=== PATIENT | female | born 1965 | race Caucasian/White ===

== ENCOUNTER → 2018-11-24 | Outpatient (CLI) | payer OTHER ==
[2018-11-24 10:07] LABS: Blood Urea Nitrogen 12 mg/dL (7-17)
--- NOTE | 2018-11-24 10:20 | CT ---
EXAMINATION TYPE: CT ChestAbdPelvis w con DATE OF EXAM: 11/24/2018 COMPARISON: Same day MRI cervical spine and outside MRI cervical spine January 12, 2018 HISTORY: Lesion of cervical spinal cord, abnormal MRI. Additional history of uterine cancer and lap b and surgery with headache and vision changes since [address] DLP: 1287 mGycm. Automated Exposure Control for Dose Reduction was Utilized. CONTRAST: CT scan of the thorax, abdomen and pelvis is performed with oral and with IV Contrast, patient inject ed with 100 ml mL of Isovue 300. FINDINGS: LUNGS: Mild to moderate underlying emphysematous change with apical subpleural bleb formation is pres ent. No pleural effusion or pneumothorax is seen. No suspicious nodules or masses are identified. No suspicious consolidation. MEDIASTINUM: There are scattered prominent but subcentimeter lymph nodes including AP window, pericar inal, and subcarinal levels as well as anterior to ascending aorta axial image 23. Largest measure ly mph node is anterior right hilum measuring 1.6 x 1.0 cm axial image 27. No definitive greater than 1 cm on short axis lymph nodes are seen. No cardiomegaly or pericardial effusion is seen. OTHER: No additional significant abnormality is seen. LIVER/GB: Cholecystectomy clips are present.. PANCREAS: No significant abnormality is seen. SPLEEN: No significant abnormality is seen. ADRENALS: No significant abnormality is seen. KIDNEYS: No significant abnormality is seen. BOWEL: The oral contrast reaches level of the right colon. There is no suspicious small or large liz l dilatation. There is suspected 1 cm right pelvic phlebolith near sigmoid colon axial image 100. GENITAL ORGANS: Uterus is surgically absent. Ovaries are not seen and suspected surgically absent. LYMPH NODES: No greater than 1cm abdominal or pelvic lymph nodes are appreciated. OSSEOUS STRUCTURES: Area of concern at right C7-T1 on axial images on outside MRI does not reproduce on current MRI and is presumed artifactual. There is moderate multilevel spurring in the thoracic spi ne. There is mild narrowing of both hip joints. OTHER: There is mild vascular without sedation of aorta extending into branch vessels. IMPRESSION: No suspicious mass or adenopathy. Mild to moderate underlying emphysematous change witho ut acute pulmonary process.
--- NOTE | 2018-11-25 17:47 | MR ---
EXAMINATION TYPE: MR cervical spine wo/w con DATE OF EXAM: 11/24/2018 COMPARISON: 01/12/2018 HISTORY: 53-year-old female Lesion of cervical spinal cord Technique: Multiplanar, multisequence images of the cervical spine were obtained before and after adm inistration of 7 mL intravenous Gadavist gadolinium contrast. FINDINGS: No craniocervical junction abnormality, predental space widening, or prevertebral soft tissue swellin g. Alignment of the cervical spine is maintained with moderate multilevel degenerative disc disease tootie acterized by desiccated and mildly narrowed discs with disc osteophyte complexes. Scattered fatty Mod ic type II endplate changes present. No suspicious bone marrow placement. There is a degenerative trace grade 1 anterolisthesis at T2-T3. Scattered facet and uncovertebral joint degenerative changes present. At C2-C3, there is facet degenerative change without significant canal or foraminal stenosis. At T2-C4, mild posterior disc osteophyte complex and mild uncovertebral joint and facet degenerative change. No significant spinal canal or foraminal stenosis. Discussed by complex abuts the ventral cor d without cord flattening. At C4-C5, disc osteophyte complex with uncovertebral joint and facet degenerative change. No signific ant canal or foraminal stenosis. Disc osteophyte complex abuts the ventral cord without cord flatteni ng. At C5-C6, there is broad-based disc osteophyte complex with uncovertebral joint and facet degenerativ e change. Changes result in mild to moderate bilateral neuroforaminal stenosis. There is mild spinal canal stenosis with abutment of the ventral cord. At C6-C7, larger broad-based disc osteophyte complex with uncovertebral joint and facet degenerative change. Changes result in mild to moderate right and mild left neuroforaminal stenosis. However, long with a 5 mm nodular focus in the left lateral recess, there may be a more significant left-sided clara ral foraminal stenosis. There is mild spinal canal stenosis with abutment and slight flattening of th e ventral cord. At C7-T1, no spinal canal or neuroforaminal stenosis. Scattered CSF pulsation artifacts are present within the CSF on the axial T2 sequence. This is not as pronounced as on the outside 01/12/2018 study. No abnormal enhancement within the spinal canal. Opposite the C6-C7 level, there is a 5 mm isointense nodular focus in the left lateral recess, refer to sagittal image 4 and axial postcontrast image 15 that could represent a focal disc extrusion. Otherwise, no mass is seen within the spinal canal with particular attention to the right ventral asp ect of the canal at C7-T1. Correlating with the prior study, findings are most compatible with promin ent CSF pulsation artifact. Normal T2 cord signal. No prevertebral or paravertebral soft tissue abnormality. IMPRESSION: 1. Mild to moderate multilevel disc/endplate degenerative changes as well as scattered facet and unco vertebral joint arthropathy. 2. Changes result in mild overall narrowing of the spinal canal at C5-C6 and C6-C7 with abutment of t he ventral cord. No cord compression or canal compromise. No lesion of the spinal cord. 3. A nonenhancing 5 mm nodular focus in the left lateral recess at C6-C7. This is a very subtle findi ng and may represent a small focal disc extrusion narrowing the left neuroforamen. The lack of enhanc ement argues against a nerve sheath tumor or meningioma. 4. The previously questioned abnormality at C7-T1 along the right ventral aspect of the spinal canal corresponds to prominent CSF pulsation artifact. There is no mass here.
== END ==
LOC: RADMRIMAIN 07:30
PROVIDERS: ATTEND Internal Medicine Hematology & Oncology
DX: J43.9 Emphysema, unspecified (principal); M12.88 Other specific arthropathies, not elsewhere classified, other specified site; M48.02 Spinal stenosis, cervical region; S14.15 Other incomplete lesions of cervical spinal cord; Z88.8 Allergy status to other drugs, medicaments and biological substances
CPT/HCPCS: 82565; 84520; 71260; 74177; 36415; 72156; A9585; Q9967

== ENCOUNTER → 2019-03-15 | Outpatient (CLI) | payer OTHER ==
[2019-03-15 20:29] LABS: Total Protein,CSF 26 mg/dL (12-60)
[2019-03-15 22:33] LABS: Appearance,CSF Clear; CSF Tube Number 4; Nucleated Cells, CSF 2 u/L (0-5); Red Blood Cell,CSF 1 u/L (0-10)
[2019-03-17 14:10] LABS: IgG - CSF 1.4 mg/dL (0.0 - 3.4); IgG/Albumin Index (CSF) 0.57 (0.00 - 0.77); Immunoglobulin G 910 mg/dL (700 - 1600)
== END | disposition home or self-care (01) ==
LOC: LABWHC1 10:02
PROVIDERS: ATTEND Psychiatry & Neurology Pain Medicine
DX: H53.9 Unspecified visual disturbance (principal); R90.82 White matter disease, unspecified; R41.3 Other amnesia; R51 Headache
CPT/HCPCS: 36415; 82040; 82042; 82784; 83873; 83916; 84157; 87801; 89050

== ENCOUNTER → 2019-03-29 | Outpatient (CLI) | payer OTHER | LOC: CPPFTMAIN 08:18 | PROVIDERS: ATTEND Internal Medicine | DX: R09.89 Other specified symptoms and signs involving the circulatory and respiratory systems (principal) | CPT/HCPCS: 94060; 94726; 94729 ==

== ENCOUNTER 2020-06-01 08:01 | Day surgery (SDC) | payer OTHER ==
[2020-05-30 14:36] VITALS: BMI 25.1
[2020-06-01 08:16] VITALS: TEMP 97.6
[2020-06-01] MEDS ORDERED: LACTATED RINGERS 1,000 ML IV ONE (08:33)
[2020-06-01] MEDS ORDERED: LIDOCAINE 1% (10MG/ML) FOR IV START INTRADERMA ONE (08:34)
--- NOTE | 2020-06-01 10:11 | P.PCN ---
Date of Procedure: 06/01/20 Procedure(s) Performed: BRIEF HISTORY: Patient is a 54-year-old pleasant female scheduled for an elective colonoscopy as a part of evaluation of prior history of colon polyps. Last colonoscopy was 5 years ago. PROCEDURE PERFORMED: Colonoscopy with snare polypectomy. PREOPERATIVE DIAGNOSIS: History of colon polyps. IV sedation per Anesthesia. PROCEDURE: After informed consent was obtained, the patient, was brought into the endoscopy unit. IV sedation was administered by Anesthesia under continuous monitoring. Digital rectal examination was normal. Initially the Olympus CF-160 flexible video colonoscope was then inserted in the rectum, gradually advanced into the cecum without any difficulty. Careful examination was performed as the scope was gradually being withdrawn. Ileocecal valve and the appendiceal orifice were visualized and appeared normal. Prep was excellent. Mucosa of the cecum, ascending colon appeared normal. In the hepatic flexure there was a 1 cm broad- based polyp removed by snare polypectomy. Rest of the transverse colon, descending colon, sigmoid colon, and rectum appeared normal. Retroflexion was performed in the rectum and no lesions were seen. The patient tolerated the procedure well. IMPRESSION: 1 cm hepatic flexure polyp status post polypectomy Rest of the colon appeared normal RECOMMENDATIONS: Findings of this examination were discussed with the patient well as her family. She was advised to follow with the biopsy results. If the biopsy shows an adenoma she can have a repeat colonoscopy in 3-5 years.
[2020-06-01 10:30] VITALS: BP 119/70; PULSE 68; RESP 16
== END 2020-06-01 10:44 | disposition home or self-care (01) ==
LOC: ORWHC2ENDO 08:01
PROVIDERS: ATTEND Internal Medicine Gastroenterology
DX: Z12.11 Encounter for screening for malignant neoplasm of colon (principal); D12.3 Benign neoplasm of transverse colon; Z86.010 Personal history of colon polyps; E78.5 Hyperlipidemia, unspecified; J45.909 Unspecified asthma, uncomplicated; G43.909 Migraine, unspecified, not intractable, without status migrainosus; K90.0 Celiac disease; K86.81 Exocrine pancreatic insufficiency; Z88.8 Allergy status to other drugs, medicaments and biological substances; Z79.899 Other long term (current) drug therapy; Z98.890 Other specified postprocedural states
CPT/HCPCS: 45385; 88305

== ENCOUNTER → 2020-07-09 | Outpatient (CLI) | payer OTHER ==
[2020-07-09 10:34] LABS: Basophils # (A) 0.1 k/uL (0-0.2); Basophils % (A) 1 %; Eosinophils # (A) 0.1 k/uL (0-0.7); Eosinophils % (A) 1 %; HGB 15.1 gm/dL (11.4-16.0); Lymphocytes # (A) 3.3 k/uL (1.0-4.8); Lymphocytes % (A) 35 %; MCH 29.1 pg (25.0-35.0); MCHC 34.5 g/dL (31.0-37.0); MCV 84.3 fL (80.0-100.0); Mean Platelet Volume 6.4; Monocytes # (A) 0.6 k/uL (0-1.0); Monocytes % (A) 6 %; Neutrophils # (A) 5.3 k/uL (1.3-7.7); Neutrophils % (A) 56 %; Platelet Count 346 k/uL (150-450); RBC 5.21 m/uL (3.80-5.40); RDW 12.9 % (11.5-15.5); WBC 9.5 k/uL (3.8-10.6)
[2020-07-09 15:47] LABS: African American GFR (CKD) 95.5 (60.0-200.0); Albumin 4.8 g/dL (3.80-4.90); BUN/Creat Ratio 16.25 Ratio (12.00-20.00); Calcium 9.7 mg/dL (8.7-10.3); Globulin 2.4 g/dL (1.6-3.3); Non-African American GFR(CKD) 82.4 (60.0-200.0); Potassium 3.9 mmol/L (3.5-5.5); Total Bilirubin 0.4 mg/dL (0.3-1.2); Total Protein 7.2 g/dL (6.2-8.2)
[2020-07-09 15:55] LABS: T4, Free (Free Thyroxine) 1.2 ng/dL (0.80-1.80)
[2020-07-09 16:10] LABS: Folate, Serum 15.3 ng/mL
[2020-07-09 16:22] LABS: Hepatitis B Core IgM Non-Reactive (Non-Reactive); Hepatitis B Surface AB- Quant 5.9 mIU/mL; Hepatitis B Surface Antibody Non-Reactive (Non-Reactive); Hepatitis B Surface Antigen Non-Reactive (Non-Reactive)
[2020-07-09 17:41] LABS: Hemoglobin A1C 5.4 % (4.0-6.0)
[2020-07-09 19:11] LABS: HIV 2 AB Non-Reactive (Non-Reactive); HIV AB P24 Non-Reactive (Non-Reactive); HIV P24 AG Non-Reactive (Non-Reactive)
[2020-07-09 19:43] LABS: Total Protein,CSF 34 mg/dL (12-60)
[2020-07-09 20:04] LABS: Appearance,CSF Clear; CSF Tube Number 4
[2020-07-09 20:05] LABS: CSF Tube Volume 3; Nucleated Cells, CSF 0 u/L (0-5); Red Blood Cell,CSF 1 u/L (0-10)
[2020-07-11 05:12] LABS: Varicella IgM Antibody 0.32 INDEX (<=0.90)
== END | disposition home or self-care (01) ==
LOC: LABWHC1 09:55
PROVIDERS: ATTEND Psychiatry & Neurology Pain Medicine
DX: R90.82 White matter disease, unspecified (principal); Z51.81 Encounter for therapeutic drug level monitoring
CPT/HCPCS: 36415; 80053; 82040; 82042; 82306; 82607; 82746; 82784; 83036; 83873; 83916; 84157; 84207; 84425; 84439; 84443; 84481; 84591; 85025; 86704; 86705; 86706; 86787; 87340; 87390; 87801; 89050

== ENCOUNTER → 2024-07-29 | Outpatient (CLI) | payer OTHER | END | disposition home or self-care (01) | LOC: LABPAT 09:00 | PROVIDERS: ATTEND Orthopaedic Surgery | DX: Z01.818 Encounter for other preprocedural examination (principal); Z22.322 Carrier or suspected carrier of Methicillin resistant Staphylococcus aureus; M50.220 Other cervical disc displacement, mid-cervical region, unspecified level; M47.22 Other spondylosis with radiculopathy, cervical region | CPT/HCPCS: 87070 ==

== ENCOUNTER 2024-08-09 05:33 | Day surgery (SDC) | payer OTHER ==
[~2024-08-09 05:33] MED LIST: TRANEXAMIC 1,000 MG/100ML-NACL 1,000 MG in SALINE 1 100ML.BAG IVPB PRN
[2024-08-09] MEDS ORDERED: LIDOCAINE 1% (10MG/ML) FOR IV START INTRADERMA PRN (05:57)
[2024-08-09] MEDS: GABAPENTIN 300 MG CAP PO PRN (06:31)
[2024-08-09] MEDS: ACETAMINOPHEN TAB 500 MG TAB PO PRN (06:31)
[2024-08-09] MEDS: LACTATED RINGERS 1,000 ML IV SCH (06:34)
[2024-08-09] MEDS: ONDANSETRON 4 MG/2 ML VIAL IVP ONE (06:34)
[2024-08-09] MEDS: IV FLUID CONTINUATION 1,000 ML IV ONE (06:41)
[2024-08-09] MEDS: MIDAZOLAM 2 MG/2 ML VIAL IV ONE (06:56)
[2024-08-09] MEDS: DEXAMETHASONE SOD PHOSPHATE 4 MG/ML 1 ML VIAL IV ONE (07:00)
--- NOTE | 2024-08-09 07:27 | P.HPOR ---
History of Present Illness H&P Date: 07/29/24 .D:Date: 07/29/24 : 04:14pm .T:Title: *PRE-OP H1 [facility] [address] [place] [address] [place] [address]| PROVIDER: LUANNE MARKHAM DO CLINICAL SUMMARY: *59-year-old female presents with severe cervical pain and progressive neurological symptoms including left upper extremity weakness. Patient has a 3- year history of cervical issues with failed conservative management including physical therapy, NSAIDs, activity modification, cervical epidural injections, and home exercise programs. Imaging reveals severe cervical spondylosis at C5-7 with evidence of cord compression, myelomalacia, and bilateral foraminal stenosis. MRI and CT demonstrate significant central canal stenosis, loss of normal cervical lordosis, and multi-level degenerative changes. Given the progressive nature of symptoms and evidence of cord signal changes, patient is scheduled for C5-7 ACDF. Patient understands risks and benefits of surgical intervention and wishes to proceed with surgery. 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 Waldrop presents to the office today, 06/08/24, for a pre-operative appointment preceding her C5-7 ACDF. She states continued progressive pain and debility despite her attempts at conservative treatment. She states she has been dealing with her neck for the past 3 years and she has been to several doctors, surgeons and done multiple rounds of conservative treatments but has not gotten any better and she states she is ready for surgery. She states pain in her neck that radiates to her b/l shoulders and out to her hands on the right side more than left. 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 She states she drops things like her cups and it is harder to use utensils on that side. She states no recent trauma on the neck. There is remote history of trauma from accident. She states she does not feel off balance at this time. She states no other issues with her neck currently other than that stated. H8 Patient denies any f/c/sob/cp, perineal numbness or tingling, bowel, or bladder incontinence/retention. Patient is ambulatory P1 The patients past social, medical, family, surgical history, as well as review of systems, have been reviewed. Please refer to the History and Physical form that has been scanned into our electronic medical record system. R0 16 points review of systems completed and as stated in HPI, all other systems reviewed are negative. PAST TREATMENTS: PAST IMAGING: YES -XR, MRI, CT TRAUMA RELATED: NO - WORK RELATED: NO - PT IN LAST 6 MONTHS: YES -in the last 3 months she has done 12 sessions. The last few made her worse in the sense of pain in her neck PHYSICIAN DIRECTED HOME EXERCISE PROGRAM: YES -NO improvement ACTIVITY MODIFICAITON: YES -limited BLTPP, she states she has to do things but everything seems to aggravate at this time. MEDICATIONS: YES -REcently, noroco. Previously Tylenol, aleve with minimal relief. Flexeril/robaxin with mild relief. Prednisone helped while on it but then did not last. ALTERNATIVE INTERVENTIONS (CHIROPRACTIC, ACCUPUNCTURE, MASSAGE, RICE): YES -Massage, RICE BRACING: NO - INJECTIONS (PAPA, TF, RFA): YES -Previous injections in neck, she states gave her terrible LEGGETT and she will never do again. MEDICAL HISTORY: Past Medical History: REVIEWED STATED IN CHART Past Surgical History: REVIEWED STATED IN CHART Social History: REVIEWED STATED IN CHART SMOKING: Never smoker ETOH: None SUBSTANCES: None Family History: REVIEWED STATED IN CHART P1 Current Medications: Rx: albuterol sulfate HFA 90 mcg/actuation aerosol inhaler Ref: 0 Instructions: inhale 1 - 2 puffs (90 - 180 mcg) by inhalation route every 4 hours as needed Rx: Ditropan Ref: 0 Rx: FLUoxetine 40 mg capsule Ref: 0 Instructions: take 1 capsule (40 mg) by oral route 2 times per day in the morning and at noon Rx: HYDROcodone 5 mg-acetaminophen 325 mg tablet Ref: 0 Instructions: take 1 tablet by oral route every 4 hours as needed for pain Rx: KlonoPIN 0.5 mg tablet Ref: 0 Instructions: take 1 tablet (0.5 mg) by oral route 2 times per day Rx: ondansetron HCL 4 mg tablet Ref: 0 Instructions: take 1 tablet (4 mg) by oral route 4 times per day Rx: pravastatin 40 mg tablet Ref: 0 Instructions: take 1 tablet (40 mg) by oral route once daily Rx: pyridoxine (vitamin B6) 500 mg tablet Ref: 0 Rx: mexiletine 150 mg capsule Ref: 0 Instructions: take 1 capsules (300 mg) by oral route every daily with food P1 PHYSICAL EXAM: General: AOX3, NAD, Well hydrate, well nourished HEENT: No lumps or masses Extremities: No color changes, no pooling INTEGUMENT: Appearance: Normal color and turgor Surgical Incisions: none Hairy Patches: ABSENT Dorsal Skin Dimples: Normal [employer] spots: ABSENT PALPATION: TTP Midline: YES Paracervical: YES Parathoracic: NO Paralumbar: NO SIJ TESTING: NT POSTURAL BALANCE: Coronal: BALANCED Sagittal: BALANCED Shoulder height: LEVEL Pelvic Girdle: LEVEL ROM AND APPEARANCE: Neck: RESTRICTED Lumbar: UNRESTRICTED Shoulders: Symmetrical Hips: Symmetrical Knees: Symmetrical Hands: Symmetrical Feet: Symmetrical VASCULAR STATUS: PALPABLE PULSES B/L UE AND LE 2/4 RAD/ULNAR/DP/PT Edema: NONE NEUROLOGICAL EXAMINATION: Mental Status: Awake, alert, fully oriented with normal attention, concentration, and memory. Fluent appropriate speech. CRANIAL NERVES: I: Olfactory not assessed. II: Visual acuity normal, no visual field deficit noted with confrontation. III, IV: Normal pupillary reflexes & intact extraocular movements without nystagmus. V, : Intact symmetrical facial sensation. VII: Intact symmetrical facial motor movement: Hearing intact. IX, X: Intact gag, swallow, & normal voice. XI: Sternocleidomastoid, trapezius function intact. XII: Tongue midline with normal movements. TENSIONING: * L'HERMITTE'S SIG:NEG SPURLUNG'S SIGN:POS CUBITAL TUNNEL COMPRESSION:NEG TINELS AT WRIST:NEG STRAIGH LEG RAISE:NEG CONTRALATERAL STRAIGHT LEG RAISE: NEG MOTOR EXAM (0-5/5, NT) Muscle appearance: Symmetrical, without signs of atrophy or dystrophy UPPER EXTREMITY RIGHT LEFT Shoulder Abduction 5 5 Biceps 5 5 Triceps 5 4 Wrist Extension 4 4 Hand Intrinsics 4 4 Wireless Engineer 4 4 LOWER EXTREMITY RIGHT LEFT Hip Flexion 5 5 Knee Extension 5 5 Knee Flexion 5 5 Dorsiflexion 5 5 Plantarflexion 5 5 EHL 5 5 FHL 5 5 REFLEXES (0-4/2, NT): RIGHT LEFT Bicep 2 2 Brachioradialis 2 2 Triceps 2 2 Patellar 1 1 Achilles 1 2 PATHOLOGICAL REFLEXES: RIGHT LEFT CARRENO'S PRESENT PRESENT CLONUS ABSENT ABSENT BABINSKI ABSENT ABSENT RECTAL TONE: INTACT/NT SENSATION (0-4, NT): Sensation intact to LT and Pain * C5-T1 distribution BUE * L2-S2 distribution BLE *Exceptions below* DERMATOMAL DEFICIT/RADICULAR PATTERN: C4-7 GAIT AND FUNCTIONAL EVALUATION: AMBULATORY AID NONE ROMBERG'S TEST INTACT HAND AND FINGER DEXTERITY INTACT NONE DYSDIADOCHOKINESIA EXAM NEG B/L NONE TOE/HEEL WALK INTACT WITH GOOD BALANCE NONE SQUAT AND RISE W/O ASSISTANCE TO 60 DEG KNEE FLEXION NONE SINGLE LEG STANCE INTACT [place] NEG IMAGING: XRAY Date: 05/02/24 Location: Region: CERVICAL Views: AP/LAT/FLEX/EXT/OB IMAGES ARE REVIEWED WITH THE PATIENT IN OFFICE AND DEMONSTRATE THE FOLLOWING: FINDINGS: 1. Significant degenerative changes throughout the cervical spine 2. Loss of normal cervical lordosis 3. Multiple levels of disc space narrowing 4. Anterior and posterior osteophyte formation at multiple levels 5. Severe cervical spondylosis 6. Possible foraminal narrowing due to the degenerative changes 7. Marked [id number]-mc-[id number] changes at several disc spaces CT Date: 05/06/24 Location: [facility] Region: CERVICAL Contrast: N IMAGES ARE REVIEWED WITH THE PATIENT IN OFFICE AND DEMONSTRATE THE FOLLOWING: FINDINGS: 1. Significant cervical spondylosis, most pronounced at C5-C7 levels 2. Loss of normal cervical lordosis 3. Disc space narrowing at multiple levels, particularly severe at C5-6 and C6-7 4. Prominent anterior and posterior osteophyte formation 5. Endplate sclerosis at the affected levels 6. Facet joint hypertrophy visible on the posterior elements 7. Some degree of retrolisthesis noted 8. Bilateral uncovertebral joint hypertrophy 9. Bilateral facet arthropathy 10. Central canal appears relatively preserved but with some stenosis 11. Neural foraminal narrowing bilaterally 12. Posterior osteophyte formation 13. Normal vertebral body cortical margins without fracture IMPRESSION: 1. Moderate to severe cervical spondylosis, most pronounced at C5-7 2. Multi-level degenerative disc disease 3. Bilateral neural foraminal stenosis 4. Facet arthropathy 5. No acute fracture or subluxation identified 6. Findings likely contributing to cervical radiculopathy if clinically present MRI Date: 05/06/24 Location: [facility] Region: CERVICAL Contrast: N IMAGES ARE REVIEWED WITH THE PATIENT IN OFFICE AND DEMONSTRATE THE FOLLOWING: FINDINGS: Sagittal T2 Weighted Images: 1. Multi-level cervical spondylosis, most severe at C5-6 and C6-7 2. Loss of normal cervical lordosis 3. Significant disc height loss at C5-6 and C6-7 4. Posterior disc osteophyte complexes at these levels causing spinal canal stenosis 5. T2 signal changes in the cord at C5-6 level suggesting myelomalacia 6. Moderate to severe central canal stenosis at C5-6 and C6-7 7. CSF signal effacement anterior and posterior to the cord at these levels Axial T2 Weighted Images: 1. Severe bilateral foraminal stenosis at shown levels 2. Central canal stenosis with cord compression 3. Loss of normal CSF signal around the cord 4. Facet hypertrophy contributing to stenosis 5. Uncovertebral joint hypertrophy 6. Cord flattening/deformation at the stenotic levels IMPRESSION: 1. Severe cervical spondylosis at C5-6 and C6-7 with: - Central canal stenosis - Bilateral neural foraminal stenosis - Evidence of cord signal changes suggesting myelomalacia 2. Multi-level degenerative disc disease 3. Significant cord compression with CSF effacement 4. Findings consistent with cervical myelopathy and radiculopathy These findings represent significant pathology that likely correlates with clinical symptoms of myelopathy and/or radiculopathy and may warrant surgical consideration. IMPRESSION: It was my pleasure to have seen and examined Lashaun. I reviewed the patient's clinical syndrome, physical findings, and imaging studies during the appointment today. It is my impression that the patient has a diagnosis of. 1. M50.021 - Cervical disc disorder with myelopathy, mid-cervical region (C5-C6) - Evidence of cord signal changes and compression 2. M47.12 - Other spondylosis with myelopathy, cervical region - Multi-level cervical spondylosis with cord compression 3. M50.121 - Cervical disc disorder with radiculopathy, mid-cervical region - Bilateral foraminal stenosis at C5-6 and C6-7 4. M48.02 - Spinal stenosis, cervical region - Severe central canal stenosis at multiple levels 5. M47.812 - Spondylosis without myelopathy or radiculopathy, cervical region - General degenerative changes throughout cervical spine 6. G95.20 - Cord compression, unspecified - Evidence of spinal cord compression with myelomalacia PLAN: DISCUSSION NOTE: I had a detailed discussion with patient regarding cervical pathology. Reviewed MRI and CT findings showing severe stenosis at C5-7 with evidence of cord compression and signal changes. Explained that these findings correlate with her symptoms of progressive neck pain, left upper extremity weakness, and radicular symptoms. We discussed natural history of cervical spondylotic myelopathy and risks of progression without intervention. Reviewed all treatment options including: Conservative Options (Already Attempted): * Physical therapy NSAIDs/Pain management Activity modification Cervical epidural injections Home exercise program Cervical traction Given failure of conservative measures and evidence of progressive neurological symptoms, surgical intervention was discussed. Recommended anterior cervical discectomy and fusion (ACDF) at C5-7. Reviewed surgical procedure, recovery process, and expected outcomes. Discussed surgical risks including but not limited to: * Infection Bleeding Dysphagia Neural injury Hardware complications Adjacent segment disease Need for future surgery General surgical/anesthetic risks Patient understands risks/benefits and wishes to proceed with surgical intervention. AUTHORIZATION REQUEST: Patient Demographics: Age: 58 Primary Symptoms: Progressive cervical myelopathy, radiculopathy PROCEDURE REQUESTED: Anterior Cervical Discectomy and Fusion (ACDF) C5-7 PRIMARY ICD-10 CODES: * M50.021 - Cervical disc disorder with myelopathy, mid-cervical region M47.12 - Other spondylosis with myelopathy, cervical region M50.121 - Cervical disc disorder with radiculopathy, mid-cervical region M48.02 - Spinal stenosis, cervical region CPT CODES: * 91975 - Anterior cervical discectomy and fusion, single level 57128 - Each additional level 47708 - Anterior instrumentation, 2-3 segments MEDICAL NECESSITY: * Documented Progressive Neurological Deficit: * Left upper extremity weakness Cervical radiculopathy MRI evidence of cord signal changes Progressive myelopathic symptoms * Failed Conservative Treatment: * Physical therapy without improvement NSAIDs/medication management Activity modification Epidural injections Home exercise program * Imaging Evidence: MRI/CT demonstrates: * Severe central canal stenosis C5-7 Cord compression with signal changes Bilateral foraminal stenosis Advanced spondylotic changes * Clinical Progression: * Worsening neurological symptoms Failing conservative management Progressive functional decline Increasing pain levels Impact on activities of daily living SURGICAL RATIONALE: Multi-level ACDF is indicated due to: * Failed adequate conservative management Progressive neurological compromise Documented pathology on imaging Cord signal changes indicating myelomalacia Risk of further neurological deterioration without intervention REQUESTED AUTHORIZATION: * Pre-operative clearance Hospital admission (1-2 days) Post-operative rehabilitation DME as needed Post-operative medication management Without surgical intervention, patient is at significant risk for continued neurological deterioration and permanent cord injury. Given the progressive nature of symptoms and failure of conservative measures, surgical intervention represents the most appropriate treatment option. FOLLOW UP: *POST-OP PLAN AT NEXT VISIT: * RECHECK PATIENT EDUCATION: Medications Reviewed: YES In our visit today Ms. Waldrop and I have had a chance to go over my understanding of the patient's current condition, the natural course history without intervention and various interventional options. Questions were invited and answered, and the patient wishes to proceed as outlined above. I will be sure to keep you updated after Ms. Waldrop returns here for further follow-up. Thank you again for your referral. Please do not hesitate to contact me if you have any further questions. Signed and authenticated by: Luanne Cokeron [facility] [address] [address] . This message is confidential, intended only for the named recipient(s) and may contain information that is privileged or exempt from disclosure under applicable law. If you are not the intended recipient(s), you are notified that the dissemination, distribution or copying of this information is prohibited. If you received this message in error, please notify the sender then delete this message. Past Medical History Past Medical History: Asthma, Fibromyalgia, Hyperlipidemia, Neurologic Disorder, Rheumatoid Arthritis (RA) Additional Past Medical History / Comment(s): HX MIGRAINES, CELIAC DISEASE, IBS, COLITIS-NAUSEA ALL THE TIME AND LOOSE STOOLS-GLUTEN FREE DIET, SINUS PROBLEMS @ TIMES. History of Any Multi-Drug Resistant Organisms: None Reported Past Surgical History: Appendectomy, Bladder Surgery, Cholecystectomy, Hysterectomy, Orthopedic Surgery Additional Past Surgical History / Comment(s): NUMEROUS COLONOSCOPIES, NUMEROUS ORAL SURGERIES, BLADDER SUSPENSION, RT KNEE SCOPE. Past Anesthesia/Blood Transfusion Reactions: Postoperative Nausea & Vomiting (PONV) Smoking Status: Former smoker, Vaper - Past Family History Father Family Medical History: Cancer Additional Family Medical History / Comment(s): Leukemia. Mother Family Medical History: Cancer Additional Family Medical History / Comment(s): kidney ca Medications and Allergies Home Medications Medication Instructions Recorded Confirmed Type Albuterol Sulfate [Proventil Hfa] 1 - 2 puff INHALATION Q4H PRN 11/23/14 08/04/24 History FLUoxetine HCL [PROzac] 20 mg PO DAILY 11/23/14 08/04/24 History diazePAM [Valium] 5 mg PO BID PRN 11/23/14 08/04/24 History Ondansetron [Zofran] 8 mg PO Q8HR PRN 05/23/20 08/04/24 History Pravastatin Sodium [Pravachol] 20 mg PO DAILY 05/23/20 08/04/24 History oxyBUTYnin chloride [Ditropan XL] 15 mg PO DAILY 05/23/20 08/04/24 History Atogepant [Qulipta] 10 mg PO DAILY 08/04/24 08/04/24 History Fluticasone/Umeclidin/Vilanter 1 puff INHALATION DAILY 08/04/24 08/09/24 History [Trelegy Ellipta 200-62.5-25] Allergies Allergy/AdvReac Type Severity Reaction Status Date / Time bupropion HCl Allergy Anaphylaxis Verified 08/09/24 06:30 [From Wellbutrin] topiramate [From Topamax] Allergy SLURRED Verified 08/09/24 06:30 SPEECH, " WASTED FEELING" PER PT gabapentin AdvReac SLURRED Verified 08/09/24 06:30 SPEECH, " WASTED FEELING" PER PT Physical Examination Osteopathic Statement: *. No significant issues noted on an osteopathic structural exam other than those noted in the History and Physical/Consult.
[2024-08-09] MEDS: THROMBIN (BOVINE) 5,000 UNIT VIAL TOPICAL ONE (07:30)
[2024-08-09] MEDS: LACTATED RINGERS 1,000 ML IV ONE (09:13)
--- NOTE | 2024-08-09 09:46 | P.OP ---
Date of Procedure: 08/09/24 Preoperative Diagnosis: 1. 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 C6-7 SPONDYLOSIS WITH STENOSIS, MYELOMALACIA 3. CERVICAL MYELOPATHY 4. UE PARESTHESIA 5. UE RADICULOPATHY 6. NECK PAIN Postoperative Diagnosis: 1. 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 C6-7 SPONDYLOSIS WITH STENOSIS, MYELOMALACIA 3. CERVICAL MYELOPATHY 4. UE PARESTHESIA 5. UE RADICULOPATHY 6. NECK PAIN Procedure(s) Performed: 1. C5-6 ANTERIOR CERVICAL ARTHRODESIS 2. C6-7 ANTERIOR CERVICAL ARTHRODESIS 3. C5-7 ANTERIOR INSTRUMENTATION 4. C5-6, C6-7 INSERTION OF BIOMECHANICAL DEVICES, CAGES x2 USE OF IONM USE OF IO MICROSCOPE Implants: -GLOBUS COALITION 8 AND 9MM XL -12MM ANCHOR/PLATE -AUTOGRAFT, MAGNATOS Anesthesia: GETA Surgeon: Rell Epperson Orthopaedic Surgeon #1: Jai Zarate (was present and assisted with all aspects of the case from position to dressing placement) Estimated Blood Loss (ml): 25 IV fluids (ml): 1,200 Urine output (ml): 425 Pathology: none sent Condition: stable Disposition: PACU Indications for Procedure: 59-year-old female presents with severe cervical pain and progressive neurological symptoms including left upper extremity weakness. Patient has a 3- year history of cervical issues with failed conservative management including physical therapy, NSAIDs, activity modification, cervical epidural injections, and home exercise programs. Imaging reveals severe cervical spondylosis at C5-7 with evidence of cord compression, myelomalacia, and bilateral foraminal stenosis. MRI and CT demonstrate significant central canal stenosis, loss of normal cervical lordosis, and multi-level degenerative changes. Given the progressive nature of symptoms and evidence of cord signal changes, patient is scheduled for C5-7 ACDF. Patient understands risks and benefits of surgical intervention and wishes to proceed with surgery. Description of Procedure: C5-7 ACDF The patient was seen and examined in the preoperative area. All preoperative protocols were followed. Informed consent was obtained, risks and benefits of the procedure were discussed at length. Risks including bleeding infection damage to the surrounding tissue and risk of reoperation were discussed with the patient. Risk of anesthesia up to and including was discussed with the patient. These are outlined in the risk review. They were willing to accept these risks and all the risks of surgery. The patient was given a weight-based dose of antibiotics in the form of 2 g Ancef. The patient was seen and evaluated by the anesthesia team who deemed them fit for surgery. The site was marked, the patient was willing to proceed with the procedure. The patient was transferred to the operative suite by the Department of anesthesia. They were then drifted off to sleep by the department anesthesia and GETA was performed. The patient tolerated this well. Jimenez catheter was placed by nursing staff, a-traumatically. Once confirmation of lines and ventilation the patient was transferred to a Supine Truman table very carefully. All bony prominences including wrists, elbows, axilla, chest, hips, and thighs, and feet were padded very well. Special attention was paid to the genitalia, and these were padded accordingly. SCDs were placed on bilateral lower extremities and were connected. Arms were well padded and placed at their side thumbs up. Once in position, again we confirmed good ventilation capabilities and that lines were running appropriately. The patients Cervical spine was then exposed. 1010s were placed outlining the incision site. Standard alcohol was used to clean the incision site and allowed to dry. C-arm was used to bio-ade the patient and confirm level for incision which was marked with a skin marker. Operative briefing was performed with all teams and everyone in agreement to proceed. The patient was then prepped and draped in a normal sterile fashion. Timeout was then performed, and all parties agreed with the procedure to be performed. Transverse skin incision was then made on the right side of the patient's neck 3 cm and dissection taken down to the platysma which was split transversely. Sub platysma flap was made, and interval identified between SCM and medial structures. Omohyoid was visualized and protected. Blunt dissection taken down to the anterior cervical fascia which was identified. Blunt probe was then placed and lateral image taken which confirmed levels for operation. These levels were then marked with a bovi. Subperiosteal dissection of the longissimus muscles were then done over these levels identifying uncovertebral joints bilaterally. Retractor was then placed deep to these muscles and held in place with a bed arm. There were large anterior osteophytes which needed to be removed along with disc osteophyte complex anteriorly. These were also removed at C5-6 and C6-7 to allow for access to these levels and mobilize them. Starting at C6-7, [place] pins were placed into C6 and C7 and gentle distraction taken out over the levels. Jayme rongeur used to remove disc material. Operating microscope brought in for visualization. Complete discectomy performed at this level with curette, rongure and pituitary. High speed diann used to remove osteophytes anteriorly and posteriorly until PLL was identified. 6-0 up curette then used to identify the canal and resect the PLL. 2-0 and 3-0 Kerrison used then to remove PLL and disc herniation and performed b/l foraminotomies. Once good decompression was accomplished, meticulous hemostasis was performed. Sizers were then placed under lateral fluoroscopy until the desired height and lordosis. Cage was then selected, packed with autograft and allograft and placed under lateral imaging. Once in good position it was tested and stable. Plate and anchor construct was then placed and anchors deployed under lateral imaging. These were in good position and were then locked and final tightened. Motors run before and after cage placement were stable. The wound was irrigated, and autograft placed lateral to the cage anteriorly for fusion. [place] pin was then removed from C7 and placed into C5. Gentle distraction taken out over C5-6 now. Complete discectomy done at C5-6 as described including decompression, b/l foraminotomies and PLL resection. Burring of endplates was minimal, osteophytes removed as described. Spacers were then sized and placed under lateral imaging. Cage selected, packed with graft and placed under lateral images. Once in position, meticulous hemostasis performed, and motors remained stable before and after cage placement. Plate and anchor construct was then placed and anchors deployed under lateral imaging. These were in good position and were then locked and final tightened. AP image confirmed good placement of cages. Wound was irrigated. All locking mechanisms were set, and all screws had good purchase. Final AP and lateral images taken confirmed good placement of hardware and good reduction and samaritan of height. The wound was then irrigated copiously with NSS. Surgicel placed deep in the wound. A deep drain placed out a separate incision and sewed into place. Layered closure then performed with 3-0 Vicryl in the platysma and subQ tissue. 4-0 Strata fix in the subcuticular tissue. The wound was then cleaned, and dried and skin glue placed. Once glue dried on Opifoam was placed. The patient was then transferred back to their hospital bed a-traumatically. The drain continued to hold suction. They were placed in a soft collar. They were then awakened by the department of anesthesia having tolerated the procedure well without complications.
--- NOTE | 2024-08-09 09:58 | XR ---
Fluoroscopy INDICATION: Pain FINDINGS: Fluoroscopy time: 24.1 seconds. Total dose area product (DAP) in uGy*m?, mGy*cm? (or similar): 0.283 Images obtained: 6. A metallic device is directed to the C5-6 disc level. IMPRESSION: 1. Documentation of fluoroscopy. [facility] Workstation: 3, 08/09/2024 9:56 AM
[2024-08-09] MEDS ORDERED: SENNOSIDES-DOCUSATE SODIUM 1 EACH TAB PO PRN (10:08)
[2024-08-09] MEDS ORDERED: MAGNESIUM HYDROXIDE 2,400 MG/30 ML CUP PO PRN (10:08)
[2024-08-09] MEDS ORDERED: HYDROcodone/APAP 5-325MG 1 EACH TAB PO PRN (10:08)
[2024-08-09] MEDS ORDERED: HYDROmorphone 0.5 MG/0.5 ML SYRINGE IVP PRN (10:08)
[2024-08-09] MEDS: HYDROmorphone 0.5 MG/0.5 ML SYRINGE IVP PRN (10:20)
--- NOTE | 2024-08-09 11:07 | FL ---
Fluoroscopy INDICATION: Pain FINDINGS: Fluoroscopy time: 19 seconds. Total dose area product (DAP) in uGy*m?, mGy*cm? (or similar): 0.2838 Images obtained: 0. IMPRESSION: 1. Documentation of fluoroscopy. [facility], , 08/09/2024 11:04 AM
[2024-08-09] MEDS: hydrALAZINE HCL 20 MG/ML 1 ML VIAL IVP STA (11:44)
[2024-08-09] MEDS: ONDANSETRON 4 MG/2 ML VIAL IVP PRN ×2 (13:27→16:47)
--- NOTE | 2024-08-09 16:26 | CT ---
EXAMINATION TYPE: CT cervical spine wo con DATE OF EXAM: 08/09/2024 4:08 PM COMPARISON: None. CLINICAL INDICATION: Female, 59 years old with history of s/p c5-C7 acdf; s/p c5-C7 acdf this morning . Post op vomiting TECHNIQUE: Axial CT images from the skull base to the inferior aspect of T2 we obtained without intra venous contrast. Coronal and sagittal reformatted images were also reviewed. Contrast used: mL of , (if blank None) Oral contrast used: (if blank None) CT DLP: 262.5 mGycm, Automated exposure control for dose reduction was used. FINDINGS: Postsurgical changes with hardware at the anterior aspect of C5-C6 and C6-C7. Drainage catheter termi nates anterior to these surgical bed. Subcutaneous gas compatible with recent surgery. No evidence fo r acute complication No evidence for fracture. Mild multilevel degeneration changes of the spine with osteophyte formation and facet joint arthropathy. Paraseptal emphysematous changes of the lungs. IMPRESSION: Post surgical changes without evidence for immediate postop application. Drainage catheter appears in appropriate position. [facility], , 08/09/2024 4:24 PM
[2024-08-09] MEDS: droPERidol 5 MG/2 ML VIAL IVP ONE (16:37)
[2024-08-09] MEDS: ACETAMINOPHEN TAB 325 MG TAB PO SCH (16:37)
[2024-08-09] MEDS: CYCLOBENZAPRINE 5 MG TAB PO PRN (16:40)
[2024-08-09] MEDS: SCOPOLAMINE 1 MG/72 HR PATCH TRANSDERM STA (18:21)
[2024-08-10] MEDS: HYDROcodone/APAP 10-325MG 1 EACH TAB PO PRN (00:18)
[2024-08-10] MEDS: HYDROmorphone 1 MG/ML 1 ML SYRINGE IVP PRN (04:04)
[2024-08-10 09:06] LABS: Basophils # (A) 0.04 X 10*3/uL (0.00-0.10); Basophils % (A) 0.2 %; Eosinophils # (A) 0.02 X 10*3/uL (0.04-0.35); Eosinophils % (A) 0.1 %; HCT 38.2 % (37.2-46.3); HGB 13.1 g/dL (12.0-15.0); Lymphocytes # (A) 2.89 X 10*3/uL (0.90-5.00); Lymphocytes % (A) 17.3 %; MCH 28.4 pg (27.0-32.0); MCHC 34.3 g/dL (32.0-37.0); MCV 82.9 FL (80.0-97.0); Mean Platelet Volume 8.8 FL (9.5-12.2); Monocytes # (A) 1.13 X 10*3/uL (0.20-1.00); Monocytes % (A) 6.8 %; NRBC Per 100 WBC 0 X 10*3/uL (0.00-0.01); Neutrophils # (A) 12.48 X 10*3/uL (1.80-7.70); Neutrophils % (A) 74.8 %; Platelet Count 369 X 10*3/uL (140-440); RBC 4.61 X 10*6/uL (4.10-5.20); RDW 13.1 % (11.5-14.5); WBC 16.69 X 10*3/uL (4.50-10.00)
[2024-08-10] MEDS: CAFFEINE-SODIUM BENZOATE 500 MG in SODIUM CHLORIDE 0.9% 1,000 ML IVPB ONE (09:06)
[2024-08-10] MEDS: SENNOSIDES-DOCUSATE SODIUM 1 EACH TAB PO SCH (09:12)
[2024-08-10 09:35] LABS: BUN/Creat Ratio 10.29 Ratio (12.00-20.00); Blood Urea Nitrogen 7.2 mg/dL (9.0-27.0); Carbon Dioxide 22.6 mmol/L (21.6-31.8); Chloride 92 mmol/L (96-109); Glucose 98 mg/dL (70-110); Potassium 3.9 mmol/L (3.5-5.5); Sodium 126 mmol/L (135-145)
[2024-08-10 09:36] LABS: Calcium 8.9 mg/dL (8.7-10.3)
[2024-08-10] MEDS ORDERED: ALBUTEROL NEBULIZED 2.5 MG/3 ML INHALATION PRN (09:44)
--- NOTE | 2024-08-10 12:05 | P.PN ---
Subjective Progress Note Date: 08/10/24 Principal diagnosis: 1. 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 C6-7 SPONDYLOSIS WITH STENOSIS, MYELOMALACIA 3. CERVICAL MYELOPATHY 4. UE PARESTHESIA 5. UE RADICULOPATHY 6. NECK PAIN Patient seen and examined this morning. Patient is resting comfortably in bed. She does have complaint of a headache and nausea this morning. Patient has been provided medications and states it is subsiding. Patient does report that she normally does have coffee in the morning, IV caffeine has been ordered. Patient denies any blurred vision or dizziness. Surgical incision to the anterior cervical spine, dressing is clean dry and intact. Hard cervical collar is in place. Encourage patient to be up in chair for all meals. Continue to encourage incentive spirometer 10 times an hour while awake. No acute concerns. Objective - Vital Signs Vital signs: Vital Signs Temp 98.0 F 08/10/24 00:24 Pulse 70 08/10/24 00:24 Resp 17 08/10/24 00:24 BP 166/90 08/10/24 00:24 Pulse Ox 97 08/10/24 00:24 FiO2 Intake & Output 08/09/24 08/10/24 08/10/24 18:59 06:59 18:59 Intake Total 1600 Output Total 1850 1310 Balance -250 -1310 Weight 58.7 kg Intake: IV 1600 Output: Drainage 10 Right Anterior Neck 10 Urine 1825 1300 Estimated Blood Loss 25 Other: # Bowel Movements 1 - Exam Physical Examination General: The patient is awake and alert, in no acute distress Skin: Skin is warm and dry with no obvious rashes or lesions. Surgical incision to the anterior cervical spine, dressing is clean dry and intact. Eye: Pupils are equal, round and reactive to light, extra-ocular movements are intact; there is normal conjunctiva bilaterally. Neck: The neck is supple, there is no tenderness and ROM intact. Cardiovascular: There is a regular rate and rhythm. No murmur, rub or gallop is appreciated. Respiratory: Respirations are non-labored, breath sounds are equal. Gastrointestinal: Soft, non-distended, non-tender abdomen. Back: There is no tenderness to palpation in the midline, paralumbar, parathoracic or buttocks region. There is no obvious deformity . Musculoskeletal: ROM limited secondary to pain and stiffness from surgical p rocedure. Right: Shoulder abduction 4/5, elbow flexors 4/5, wrist dorsiflexors 5/5. finger abductor 5/5, artificial candy maker 5/5, hip flexor 5/5, knee flexor 5/5, ankle dorsiflexor 5/5, ankle plantarflexion 5/5 and extensor hallucis 5/5. Left: Shoulder abduction 4/5, elbow flexors 4/5, wrist dorsiflexors 5/5. finger abductor 5/5, artificial candy maker 5/5, hip flexor 4-/5, knee flexor 4/5, ankle dorsiflexor 5/5, ankle plantarflexion 5/5 and extensor hallucis 5/5. Neurological: CN 2-12 intact. There are no obvious motor or sensory deficits. Movement and coordination equal and intact. Sensory exam to light touch intact C5-T1 and intact from L2-S1. Reflexes 2/4 in bilateral upper and lower extremities. Negative Hoffmans, babinski, and clonus signs. Psychiatric: Cooperative, appropriate mood & affect, normal judgment. - Labs CBC & Chem 7: 08/10/24 03:52 08/10/24 03:52 Assessment and Plan Assessment: Postop day 1: C5-C7 ACDF Plan: -Appreciate compliance consultant and team management. -Activity: Ambulate QID, OOB all meals, up and about, limit lifting bending twisting to less than 5 lbs. Use walker or cane if needed for stability. -Daily PT/OT, increase ambulation strength and balance. -Hard cervical collar is to be on at all times, may remove for showers. -Pain control: Adequate at this time -Meds: reviewed -GI ppx: senna, Miralax -DC graves when up and about, bedside commode if needed -DVT PPX: Heparin may be started tonight. -Hygiene: Maintain incision clean and dry. May change dressing as needed, please document in notes if performed. -Encourage IS 10x/hr -Dispo: Clinically pending *I reviewed and discussed this case with my attending Dr. Epperson, whom has reviewed this chart and films and is in agreement with assessment and plan of care as outlined above. I have personally seen and examined the patient, performed the documentation and the assessment and plan as written. Number of minutes spent on the visit: 20m.
[2024-08-10] MEDS: diazePAM 5 MG TAB PO PRN (12:44)
[2024-08-10] MEDS: PRAVASTATIN SODIUM 20 MG TAB PO SCH (12:44)
[2024-08-10] MEDS: OXYBUTYNIN 15 MG TAB.ER.24 PO SCH (12:44)
[2024-08-10] MEDS: FLUoxetine HCL 20 MG CAP PO SCH (12:45)
[2024-08-10] MEDS: SYMBICORT 160-4.5 MCG INHALER INHALATION SCH (12:59)
[2024-08-10] MEDS: IPRATROPIUM 0.5 MG/2.5 ML NEBU INHALATION SCH (12:59)
[2024-08-10] MEDS: methocarbamoL 750 MG TAB PO SCH (15:07)
--- NOTE | 2024-08-10 15:43 | P.CONS ---
History of Present Illness - Reason for Consult Consult date: 08/10/24 - History of Present Illness History of present illness: 59-year-old female with past medical history significant for COPD and hyperlipidemia who was following orthopedic spine for chronic back pain with progressive neurological symptoms including left upper extremity weakness. Patient had 3-year history of neck pain with failed conservative management including physical therapy NSAIDs, activity modifications, PAPA and home exercise programs. Imaging revealed severe cervical spondylosis at C5-7 with evidence of cord compression, myelomalacia and bilateral foraminal stenosis. MRI and CT demonstrated significant central canal stenosis loss of normal cervical lordosis and multilevel degenerative changes. Patient underwent cervical fusion. Internal medicine consulted for medical management. Patient denied any fever, chills, sore throat, productive cough, chest pain, palpitation, nausea vomiting diarrhea constipation abdominal pain dysuria urgency frequency weakness or numbness to extremities. Patient reported neck pain, muscle spasm. Upper extremity weakness and numbness improving. Patient complained of headache and nausea earlier today. Assessment and plan: Cervical stenosis with radiculopathy: Status post cervical fusion by orthopedic spine on 08/09/2024. Management per primary DVT prophylaxis, pain management, perioperative antibiotics per primary Bowel/bladder protocol PT/OT COPD: Stable Continue home inhalers Hyperlipidemia: Pravastatin Monitor vital signs and labs Labs and medication were reviewed. Continue same treatment. Further recommendations as per clinical course of the patient PHYSICAL EXAMINATION: GENERAL: The patient is A&O x3, NAD. Cervical collar in place. HEENT: EOMI, Sclerae anicteric, Moist Mucous membranes Neck: Supple, Non tender, No JVD PULMONARY: Equal breath souds B/L, No wheezing, No crackles. CARDIOVASCULAR: S1, S2 present. No murmurs, rubs, or gallops. ABDOMEN: Soft, nontender, nondistended, normoactive bowel sounds. No guarding or rebound tenderness. MUSCULOSKELETAL: No edema, No cyanosis. No clubbing. Normal ROM. Intact peripheral pulses. Cervical collar in place, drain. NEUROLOGICAL: CN 2-12 grossly intact. No FND REVIEW OF SYSTEMS: CONSTITUTIONAL: No fever, no malaise, no fatigue. HEENT: No recent visual problems or hearing problems. Denied any sore throat. CARDIOVASCULAR: No chest pain, orthopnea, PND, no palpitations, no syncope. PULMONARY: No shortness of breath, no cough, no hemoptysis. GASTROINTESTINAL: No diarrhea, no nausea, no vomiting, no abdominal pain. NEUROLOGICAL: No headaches, no weakness, no numbness. HEMATOLOGICAL: Denies any bleeding or petechiae. GENITOURINARY: Denies any burning micturition, frequency, or urgency. MUSCULOSKELETAL/RHEUMATOLOGICAL: Complains of neck pain, muscle spasm. ENDOCRINE: Denies any polyuria or polydipsia. The rest of the 14-point review of systems is negative. Dictation was produced using Vostu dictation software. please excuse any grammatical, word or spelling errors. Past Medical History Past Medical History: Asthma, Fibromyalgia, Hyperlipidemia, Neurologic Disorder, Rheumatoid Arthritis (RA) Additional Past Medical History / Comment(s): HX MIGRAINES, CELIAC DISEASE, IBS, COLITIS-NAUSEA ALL THE TIME AND LOOSE STOOLS-GLUTEN FREE DIET, SINUS PROBLEMS @ TIMES. History of Any Multi-Drug Resistant Organisms: None Reported Past Surgical History: Appendectomy, Bladder Surgery, Cholecystectomy, Hysterectomy, Orthopedic Surgery Additional Past Surgical History / Comment(s): NUMEROUS COLONOSCOPIES, NUMEROUS ORAL SURGERIES, BLADDER SUSPENSION, RT KNEE SCOPE. Past Anesthesia/Blood Transfusion Reactions: Postoperative Nausea & Vomiting (PONV) Past Psychological History: Anxiety, Panic Disorder Smoking Status: Former smoker, Vaper Past Alcohol Use History: None Reported Additional Past Alcohol Use History / Comment(s): SMOKER SINCE 1988-SMOKED ABOUT 1/2 PPD- quit smoking cigarettes May 2024, currently vaping nicotine Past Drug Use History: Marijuana Additional Drug Use History / Comment(s): HAS MEDICAL MARIJUANA- for pain. Aware no use 24 hrs prior to procedure. - Past Family History Father Family Medical History: Cancer Additional Family Medical History / Comment(s): Leukemia. Mother Family Medical History: Cancer Additional Family Medical History / Comment(s): kidney ca Medications and Allergies Home Medications Medication Instructions Recorded Confirmed Type Albuterol Sulfate [Proventil Hfa] 1 - 2 puff INHALATION Q4H PRN 11/23/14 08/04/24 History FLUoxetine HCL [PROzac] 20 mg PO DAILY 11/23/14 08/04/24 History diazePAM [Valium] 5 mg PO BID PRN 11/23/14 08/04/24 History Ondansetron [Zofran] 8 mg PO Q8HR PRN 05/23/20 08/04/24 History Pravastatin Sodium [Pravachol] 20 mg PO DAILY 05/23/20 08/04/24 History oxyBUTYnin chloride [Ditropan XL] 15 mg PO DAILY 05/23/20 08/04/24 History Atogepant [Qulipta] 10 mg PO DAILY 08/04/24 08/04/24 History Fluticasone/Umeclidin/Vilanter 1 puff INHALATION DAILY 08/04/24 08/09/24 History [Trelegy Ellipta 200-62.5-25] Allergies Allergy/AdvReac Type Severity Reaction Status Date / Time bupropion HCl Allergy Anaphylaxis Verified 08/09/24 06:30 [From Wellbutrin] topiramate [From Topamax] Allergy SLURRED Verified 08/09/24 06:30 SPEECH, " WASTED FEELING" PER PT gabapentin AdvReac SLURRED Verified 08/09/24 06:30 SPEECH, " WASTED FEELING" PER PT Physical Exam Vitals: Vital Signs Temp Pulse Pulse Resp BP Pulse Ox 08/10/24 14:35 97.6 F 81 16 159/87 96 08/10/24 13:13 84 08/10/24 13:01 80 08/10/24 07:45 97.9 F 72 16 179/93 96 08/10/24 00:24 98.0 F 70 17 166/90 97 08/09/24 19:11 97.9 F 71 17 160/90 94 L 08/09/24 16:56 184/94 Intake and Output 08/10/24 08/10/24 08/10/24 06:59 14:59 22:59 Output Total 1310 Balance -1310 Output: Drainage 10 Right Anterior Neck 10 Urine 1300 Other: Voiding Method Toilet # Voids 1 Results CBC & Chem 7: 08/10/24 03:52 08/10/24 03:52 Labs: Abnormal Lab Results - Last 24 Hours (Table) 08/10/24 08/10/24 Range/Units 03:52 03:52 WBC 16.69 H (4.50-10.00) X 10*3/uL MPV 8.8 L (9.5-12.2) FL Immature Gran # 0.13 H (0.00-0.04) X 10*3/uL Neutrophils # 12.48 H (1.80-7.70) X 10*3/uL Monocytes # 1.13 H (0.20-1.00) X 10*3/uL Eosinophils # 0.02 L (0.04-0.35) X 10*3/uL Sodium 126 L (135-145) mmol/L Chloride 92 L (96-109) mmol/L BUN 7.2 L (9.0-27.0) mg/dL BUN/Creatinine Ratio 10.29 L (12.00-20.00) Ratio
[2024-08-11 08:28] VITALS: BP 169/93; PULSE 84; RESP 19; TEMP 98.1
--- NOTE | 2024-08-11 08:56 | P.PN ---
Subjective Progress Note Date: 08/11/24 Principal diagnosis: 1. 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 C6-7 SPONDYLOSIS WITH STENOSIS, MYELOMALACIA 3. CERVICAL MYELOPATHY 4. UE PARESTHESIA 5. UE RADICULOPATHY 6. NECK PAIN Patient seen and examined this morning. Patient is resting comfortably in bed. Patient reports that she has been ambulatory within room and out in the hallway without any difficulty. Patient does state that her pain is managed on current regimen. Patient states she is looking forward to going home possibly later today. Discharge instructions have been reviewed. Surgical incision to the anterior cervical spine, AYLEEN drain has been removed and new dressing applied. Hard cervical collar is in place. Discussed with patient that we ordered a soft cervical collar for her to sleep and at home. Patient verbalizes understanding. No acute concerns. Objective - Vital Signs Vital signs: Vital Signs Temp 97.9 F 08/10/24 20:15 Pulse 73 08/10/24 20:15 Resp 16 08/10/24 20:15 BP 175/94 08/10/24 20:15 Pulse Ox 96 08/10/24 20:15 FiO2 Intake & Output 08/10/24 08/11/24 08/11/24 18:59 06:59 18:59 Output Total 5 Balance -5 Output: Drainage 5 Right Anterior Neck 5 Other: Voiding Method Toilet # Voids 2 1 - Exam Physical Examination General: The patient is awake and alert, in no acute distress Skin: Skin is warm and dry with no obvious rashes or lesions. Surgical inc ision to the anterior cervical spine, dressing is clean dry and intact. Eye: Pupils are equal, round and reactive to light, extra-ocular movements are intact; there is normal conjunctiva bilaterally. Neck: The neck is supple, there is Mild tenderness due to surgical procedure and limited range of motion, hard cervical collar is intact. Cardiovascular: There is a regular rate and rhythm. No murmur, rub or gallop is appreciated. Respiratory: Respirations are non-labored, breath sounds are equal. Gastrointestinal: Soft, non-distended, non-tender abdomen. Back: There is no tenderness to palpation in the midline, paralumbar, parathoracic or buttocks region. There is no obvious deformity . Musculoskeletal: ROM limited secondary to pain and stiffness from surgical procedure. Right: Shoulder abduction 4/5, elbow flexors 4/5, wrist dorsiflexors 5/5. finger abductor 5/5, professional athlete 5/5, hip flexor 5/5, knee flexor 5/5, ankle dorsiflexor 5/5, ankle plantarflexion 5/5 and extensor hallucis 5/5. Left: Shoulder abduction 4/5, elbow flexors 4/5, wrist dorsiflexors 5/5. finger abductor 5/5, professional athlete 5/5, hip flexor 4-/5, knee flexor 4/5, ankle dorsiflexor 5/5, ankle plantarflexion 5/5 and extensor hallucis 5/5. Neurological: CN 2-12 intact. There are no obvious motor or sensory deficits. Movement and coordination equal and intact. Sensory exam to light touch intact C5-T1 and intact from L2-S1. Reflexes 2/4 in bilateral upper and lower extremities. Negative Hoffmans, babinski, and clonus signs. Psychiatric: Cooperative, appropriate mood & affect, normal judgment. - Labs CBC & Chem 7: 08/10/24 03:52 08/10/24 03:52 Labs: Abnormal Lab Results - Last 24 Hours (Table) 08/10/24 08/10/24 Range/Units 03:52 03:52 WBC 16.69 H (4.50-10.00) X 10*3/uL MPV 8.8 L (9.5-12.2) FL Immature Gran # 0.13 H (0.00-0.04) X 10*3/uL Neutrophils # 12.48 H (1.80-7.70) X 10*3/uL Monocytes # 1.13 H (0.20-1.00) X 10*3/uL Eosinophils # 0.02 L (0.04-0.35) X 10*3/uL Sodium 126 L (135-145) mmol/L Chloride 92 L (96-109) mmol/L BUN 7.2 L (9.0-27.0) mg/dL BUN/Creatinine Ratio 10.29 L (12.00-20.00) Ratio Assessment and Plan Assessment: Postop day 2: C5-C7 ACDF Plan: -Appreciate home care consultant and team management. -Activity: Ambulate QID, OOB all meals, up and about, limit lifting bending twisting to less than 5 lbs. Use walker or cane if needed for stability. -Daily PT/OT, increase ambulation strength and balance. -Hard cervical collar is to be on at all times, may remove for showers. -Pain control: Adequate at this time -Meds: reviewed -GI ppx: senna, Miralax -DVT PPX: Aspirin 81 mg daily -Hygiene: Maintain incision clean and dry. May change dressing as needed, please document in notes if performed. -Encourage IS 10x/hr -Dispo: anticipate discharge home later this morning. *I reviewed and discussed this case with my attending Dr. Epperson, whom has reviewed this chart and films and is in agreement with assessment and plan of care as outlined above. I have personally seen and examined the patient, performed the documentation and the assessment and plan as written. Number of minutes spent on the visit: 20m.
[2024-08-11] MEDS: SCOPOLAMINE 1 MG/72 HR PATCH TRANSDERM STA (09:01)
[2024-08-11] MEDS: ASPIRIN 81 MG PO SCH (09:03)
[2024-08-11] MEDS: ATOGEPANT PO SCH (09:04)
[2024-08-11 09:11] LABS: BUN/Creat Ratio 16.17 Ratio (12.00-20.00); Blood Urea Nitrogen 9.7 mg/dL (9.0-27.0); Calcium 9.2 mg/dL (8.7-10.3); Carbon Dioxide 22.4 mmol/L (21.6-31.8); Chloride 91 mmol/L (96-109); Glucose 107 mg/dL (70-110); Sodium 127 mmol/L (135-145)
[2024-08-11 09:14] LABS: Basophils # (A) 0.05 X 10*3/uL (0.00-0.10); Basophils % (A) 0.4 %; Eosinophils % (A) 0.7 %; HCT 42.3 % (37.2-46.3); HGB 13.8 g/dL (12.0-15.0); Lymphocytes # (A) 1.75 X 10*3/uL (0.90-5.00); Lymphocytes % (A) 12.6 %; MCH 27.7 pg (27.0-32.0); MCHC 32.6 g/dL (32.0-37.0); MCV 84.9 FL (80.0-97.0); Mean Platelet Volume 9.2 FL (9.5-12.2); Monocytes # (A) 1.42 X 10*3/uL (0.20-1.00); Monocytes % (A) 10.2 %; NRBC Per 100 WBC 0 X 10*3/uL (0.00-0.01); Neutrophils # (A) 10.45 X 10*3/uL (1.80-7.70); Neutrophils % (A) 75.5 %; Platelet Count 362 X 10*3/uL (140-440); RBC 4.98 X 10*6/uL (4.10-5.20); WBC 13.86 X 10*3/uL (4.50-10.00)
--- NOTE | 2024-08-11 15:18 | P.PN ---
Subjective Progress Note Date: 08/11/24 Interval History: History of present illness: 59-year-old female with past medical history significant for COPD and hyperlipidemia who was following orthopedic spine for chronic back pain with progressive neurological symptoms including left upper extremity weakness. Patient had 3-year history of neck pain with failed conservative management including physical therapy NSAIDs, activity modifications, PAPA and home exercise programs. Imaging revealed severe cervical spondylosis at C5-7 with evidence of cord compression, myelomalacia and bilateral foraminal stenosis. MRI and CT demonstrated significant central canal stenosis loss of normal cervical lordosis and multilevel degenerative changes. Patient underwent cervical fusion. Internal medicine consulted for medical management. Patient denied any fever, chills, sore throat, productive cough, chest pain, palpitation, nausea vomiting diarrhea constipation abdominal pain dysuria urgency frequency weakness or numbness to extremities. Patient reported neck pain, muscle spasm. Upper extremity weakness and numbness improving. Patient complained of headache and nausea earlier today. 08/11/24--patient was seen and examined today. No issues overnight. Pain is controlled. Drain was taken out by orthopedic spine. Patient sodium 127 today, improving from yesterday was 126. Patient reported that she takes sodium tablets at home on and off, patient asymptomatic, advised patient to continue fluid restriction to 1500 mL/day, repeat BMP to be checked by PCP within 1 week. Assessment and plan: Cervical stenosis with radiculopathy: Status post cervical fusion by orthopedic spine on 08/09/2024. Management per primary DVT prophylaxis, pain management, perioperative antibiotics per primary Bowel/bladder protocol PT/OT COPD: Stable Continue home inhalers Hyponatremia: Chronic Patient reported that she has chronic hyponatremia, takes sodium tablets at home on and off, reported she does not like sodium tablets. Advised the patient to continue fluid restriction, advised to repeat BMP within 1 week, patient reported that she has an appointment with the PCP next week. sodium stable at 127, patient asymptomatic. Hyperlipidemia: Pravastatin PHYSICAL EXAMINATION: GENERAL: The patient is A&O x3, NAD HEENT: EOMI, Sclerae anicteric, Moist Mucous membranes. Cervical collar in place. Neck: Supple, Non tender, No JVD PULMONARY: Equal breath souds B/L, No wheezing, No crackles. CARDIOVASCULAR: S1, S2 present. No murmurs, rubs, or gallops. ABDOMEN: Soft, nontender, nondistended, normoactive bowel sounds. No guarding or rebound tenderness. MUSCULOSKELETAL: No edema, No cyanosis. No clubbing. Normal ROM. Intact peripheral pulses. NEUROLOGICAL: CN 2-12 grossly intact. No FND Skin: No Rash REVIEW OF SYSTEMS: CONSTITUTIONAL: No fever or chills. CARDIOVASCULAR: No chest pain, palpitations or syncope. PULMONARY: No shortness of breath, no cough, sore throat. GASTROINTESTINAL: No nausea, vomiting, diarrhea, abdominal pain. : No Dysuria, urgency, frequency. Extremities: No edema. NEUROLOGICAL: No headaches, no weakness, or numbness Dictation was produced using [employer] dictation software. please excuse any grammatical, word or spelling errors. Objective - Vital Signs Vital signs: Vital Signs Temp 98.1 F 08/11/24 07:16 Pulse 84 08/11/24 07:16 Resp 19 08/11/24 07:16 BP 169/93 08/11/24 07:16 Pulse Ox 96 08/11/24 07:16 FiO2 Intake & Output 08/10/24 08/11/24 08/11/24 18:59 06:59 18:59 Output Total 5 Balance -5 Output: Drainage 5 Right Anterior Neck 5 Other: Voiding Method Toilet # Voids 2 1 - Labs CBC & Chem 7: 08/11/24 04:07 08/11/24 04:07 Labs: Abnormal Lab Results - Last 24 Hours (Table) 08/11/24 08/11/24 Range/Units 04:07 04:07 WBC 13.86 H (4.50-10.00) X 10*3/uL MPV 9.2 L (9.5-12.2) FL Immature Gran # 0.09 H (0.00-0.04) X 10*3/uL Neutrophils # 10.45 H (1.80-7.70) X 10*3/uL Monocytes # 1.42 H (0.20-1.00) X 10*3/uL Sodium 127 L (135-145) mmol/L Chloride 91 L (96-109) mmol/L Anion Gap 13.60 H (4.00-12.00) mmol/L
== END 2024-08-11 12:34 | disposition home or self-care (01) ==
LOC: OR 05:33 → 4SSUR 09:57 → OR 08-11 12:34
PROVIDERS: ATTEND Orthopaedic Surgery
DX: M47.12 Other spondylosis with myelopathy, cervical region (principal); M47.22 Other spondylosis with radiculopathy, cervical region; M50.022 Cervical disc disorder at C5-C6 level with myelopathy; M50.122 Cervical disc disorder at C5-C6 level with radiculopathy; M48.02 Spinal stenosis, cervical region; E78.5 Hyperlipidemia, unspecified; J44.89 Other specified chronic obstructive pulmonary disease; M79.7 Fibromyalgia; M06.9 Rheumatoid arthritis, unspecified; E87.1 Hypo-osmolality and hyponatremia; R11.2 Nausea with vomiting, unspecified; R51.9 Headache, unspecified; Z79.51 Long term (current) use of inhaled steroids; Z79.899 Other long term (current) drug therapy; Z87.891 Personal history of nicotine dependence; Z88.8 Allergy status to other drugs, medicaments and biological substances
CPT/HCPCS: 22551; 22552; 22853 ×2; 22845; 20930; 20936; 94640; 97162; 80048; 85025; 72040; 72125; J2250; J0360; J1100; J0690 ×2; J2405 ×2; J1171 ×2